=== PATIENT | female | born 1990 | race African-American/Black ===

== ENCOUNTER 2017-06-09 17:16 | Emergency (ER) | payer MEDICAID ==
[~2017-06-09] VITALS: Ht 172.7 cm; Wt 144.0 kg
[2017-06-09 18:21] LABS: MICROSCOPIC INDICATED
[2017-06-09 18:46] LABS: MEAN CORPUSCULAR HGB CONC 31.2 g/dL (32.4-35.8); MEAN CORPUSCULAR VOLUME 64.1 fL (80-100); MEAN PLATELET VOLUME 7.4 fL (7.4-10.4); PLATELET COUNT 371 x10^3/uL (130-400); RED BLOOD COUNT 4.89 x10^6/uL (3.82-5.3); RED CELL DISTRIBUTION WIDTH 20.1 % (9.6-15.2)
[2017-06-09 18:52] LABS: ALANINE AMINOTRANSFERASE 16 U/L (12-78); ALBUMIN 3.2 g/dL (3.4-5.0); ANION GAP 5 mmol/L (5-15); CALCIUM 8.2 mg/dL (8.5-10.1); CHLORIDE 110 mmol/L (98-107); CREATININE 0.68 mg/dL (0.55-1.02)
[2017-06-09 18:57] LABS: ALKALINE PHOSPHATASE 84 U/L (45-117); BILIRUBIN,TOTAL 0.2 mg/dL (0.2-1.0)
[2017-06-09] MEDS ORDERED: HYDROcodone/APAP 5/325 TABLET PO ONE (19:00)
[2017-06-09] MEDS ORDERED: KETOROLAC 30 MG/1 ML IM ONE (19:00)
[2017-06-09] MEDS ORDERED: HYDROcodone/APAP 5/325 TABLET ONE (19:13)
[2017-06-09] MEDS ORDERED: KETOROLAC 30 MG/1 ML ONE (19:13)
[2017-06-09 19:19] LABS: BASOPHILS # (AUTO) 0.17 x10^3/uL (0-0.1); BASOPHILS % (AUTO) 1 % (0-1); EOSINOPHILS # (AUTO) 0.07 x10^3/uL (0-0.4); EOSINOPHILS % (AUTO) 1 % (1-7); LYMPHOCYTES # (AUTO) 3.65 x10^3/uL (1-3.4); LYMPHOCYTES % (AUTO) 28 % (22-44); MD MORPH REVIEW ONLY; MONOCYTES # (AUTO) 0.66 x10^3/uL (0.2-0.8); MONOCYTES % (AUTO) 5 % (2-9); NEUTROPHILS # (AUTO) 8.49 x10^3/uL (1.8-6.8); NEUTROPHILS % (AUTO) 65 % (42-75)
[2017-06-09 19:20] LABS: <PLATELET ESTIMATE> ADEQUATE; <PLT MORPHOLOGY> NORMAL PLT MORPH; ANISOCYTOSIS 1+; HYPOCHROMIA 1+; POLYCHROMASIA 1+
[2017-06-09] MEDS ORDERED: OMNIPAQUE 350 MG/ML, 100ML BOTTLE ONE (20:00)
[2017-06-09 20:38] VITALS: BP 122/67
[2017-06-09] MEDS ORDERED: AZITHROMYCIN 500 MG TABLET PO ONE (22:00)
[2017-06-09] MEDS ORDERED: CEFTRIAXONE 250 MG IM ONE (22:00)
[2017-06-09 22:04] LABS: CLUE CELLS NONE SEEN (NONE SEEN); WET PREP WBCS FEW (FEW)
[2017-06-09] MEDS ORDERED: AZITHROMYCIN 500 MG TABLET ONE (22:05)
[2017-06-09] MEDS ORDERED: CEFTRIAXONE 1,000 MG ONE (22:06)
== END 2017-06-09 23:10 ==
LOC: ED 20:46
DX: N89.8 Other specified noninflammatory disorders of vagina (principal); R10.2 Pelvic and perineal pain
CPT/HCPCS: 36415; 74177; 76830; 80053; 81001; 83690; 84703; 85025; 87210; 87491; 87591; 87808; 96372; 99285; J0696; J1885; Q9967